=== PATIENT | male | born 1965 | race Hispanic/Latino ===

== ENCOUNTER → 2024-11-01 | Outpatient (CLI) | payer BC ==
[~2024-11-01] MED LIST: DOXY-252 PO
--- NOTE | 2024-11-01 11:35 | HMCIMG ---
US RENAL SONOGRAM REASON: MALIGNANT NEOPLASM OF RT KIDNEY COMPARISON: None TECHNIQUE: Renal and bladder sonogram was performed. FINDINGS: Right kidney is 13 x 6.2 x 4.8 cm. There is no mass, stone or hydronephrosis. The left kidney has been removed. Urinary bladder is only partially distended. The prostate volume is 54 cubic cc. IMPRESSION: 1. Normal-appearing left kidney. 2. The latter not well seen, incompletely distended. 3. Prostate volume 54 cubic cc.
== END | disposition home or self-care (01) ==
LOC: RAH 10:38
PROVIDERS: ATTEND Urology
DX: C64.1 Malignant neoplasm of right kidney, except renal pelvis (principal)
CPT/HCPCS: 76770